=== PATIENT | female | born 1995 | race Caucasian/White ===

== ENCOUNTER 2018-01-23 11:00 | Emergency (ER) | payer BC ==
[~2018-01-23] VITALS: Ht 165.1 cm; Wt 63.5 kg
[~2018-01-23 11:00] MED LIST: HYDROXYZINE HCL25 M1 PO; PROZAC20 MG PO
[2018-01-23 11:43] LABS: URINE BILIRUBIN 1+ (Negative); URINE BLOOD NEGATIVE (Negative); URINE CLARITY CLEAR; URINE COLOR YELLOW; URINE GLUCOSE-RANDOM NEGATIVE (Negative); URINE KETONES 3+ (Negative); URINE LEUKOCYTES-REFLEX NEGATIVE (Negative); URINE NITRITE-REFLEX NEGATIVE (Negative); URINE PROTEIN 1+ (Negative); URINE SPECIFIC GRAVITY >= 1.030 (1.005-1.030); URINE UROBILINOGEN 0.2 E.U./dl (0.2-1.0)
[2018-01-23 11:45] LABS: ICTOTEST (BILI CONFIRMATORY) Negative (Negative)
[2018-01-23 11:47] LABS: INFLUENZA B ANTIGEN None Detected (None Detect)
[2018-01-23 12:10] LABS: HEMATOCRIT 42.5 % (37.0-47.0); MCH 29.2 pg (26.0-34.0); MCV 88.4 fL (80.0-100.0); MPV 9.3 fl. (7.2-11.1); NUCLEATED RBCS 0 /100WBC; PLATELET COUNT* 193 thou/uL (150-400); RBC 4.81 mil/uL (4.20-5.00); WBC 6.9 thou/uL (4.0-11.0)
[2018-01-23 12:18] LABS: CALCIUM 8.5 mg/dL (8.5-10.1); CREATININE 0.6 mg/dL (0.6-1.3); POTASSIUM 3.7 mmol/L (3.5-5.1)
[2018-01-23 12:23] LABS: TOTAL BILIRUBIN 0.4 mg/dL (<0.1-1.0); TOTAL PROTEIN 7.2 g/dL (6.4-8.2)
[2018-01-23 12:38] LABS: ABSOLUTE BASOPHILS 0.1 thou/uL (0.0-0.2); ABSOLUTE LYMPHOCYTES 0.1 thou/uL (0.8-5.3); ABSOLUTE MONOCYTES 0.5 thou/uL (0.0-1.2); ABSOLUTE NEUTROPHILS 6.2 thou/uL (1.6-8.1); PLATELET ESTIMATE ADEQUATE
[2018-01-23] MEDS ORDERED: ZOFRAN4 MG PO (13:22)
[2018-01-23 13:56] VITALS: BP 115/74
== END 2018-01-23 13:57 | disposition home or self-care (01) ==
LOC: M.ERS 11:00
PROVIDERS: Nurse Practitioner Family
DX: J09.X2 Influenza due to identified novel influenza A virus with other respiratory manifestations (principal); F32.9 Major depressive disorder, single episode, unspecified; F41.9 Anxiety disorder, unspecified; F43.10 Post-traumatic stress disorder, unspecified; Z90.89 Acquired absence of other organs; Z91.040 Latex allergy status

== ENCOUNTER 2019-01-08 20:14 | Emergency (ER) | payer BC ==
[~2019-01-08] VITALS: Ht 165.1 cm; Wt 56.7 kg
[~2019-01-08 20:14] MED LIST changes: +ZOFRAN4 MG PO
[2019-01-08] MEDS ORDERED: ACETAMINOPHEN-1 EAC1 PO (20:56)
[2019-01-08] MEDS ORDERED: NAPROSYN500 MG PO (20:56)
[2019-01-08 21:31] VITALS: BP 99/65
== END 2019-01-08 21:33 | disposition home or self-care (01) ==
LOC: M.ERS 20:14
DX: G89.29 Other chronic pain (principal); R68.84 Jaw pain; F32.9 Major depressive disorder, single episode, unspecified; F41.9 Anxiety disorder, unspecified; Z91.040 Latex allergy status

== ENCOUNTER 2019-04-12 23:40 | Emergency (ER) | payer BC ==
[~2019-04-12] VITALS: Ht 165.1 cm; Wt 54.4 kg
[~2019-04-12 23:40] MED LIST changes: +ACETAMINOPHEN-1 EAC1 PO; +NAPROSYN500 MG PO
[2019-04-12] MEDS ORDERED: ADDERALL 20 MG20 M1 PO (23:51)
[2019-04-12] MEDS ORDERED: ABILIFY 5 MG TAB5 M1 PO (23:51)
[2019-04-13] LABS: URINE BILIRUBIN NEGATIVE (Negative); URINE BLOOD NEGATIVE (Negative); URINE CLARITY CLEAR; URINE COLOR YELLOW; URINE GLUCOSE-RANDOM NEGATIVE (Negative); URINE KETONES NEGATIVE (Negative); URINE LEUKOCYTES-REFLEX NEGATIVE (Negative); URINE NITRITE-REFLEX NEGATIVE (Negative); URINE PROTEIN NEGATIVE (Negative); URINE SPECIFIC GRAVITY 1.015 (1.005-1.030); URINE UROBILINOGEN 0.2 E.U./dl (0.2-1.0)
[2019-04-13] MEDS ORDERED: ZOFRAN ODT4 MG DISSOLVE (00:11)
[2019-04-13 00:18] VITALS: BP 110/78
== END 2019-04-13 00:18 | disposition home or self-care (01) ==
LOC: M.ERS 23:40
PROVIDERS: Emergency Medicine
DX: R11.2 Nausea with vomiting, unspecified (principal); R10.32 Left lower quadrant pain; F17.200 Nicotine dependence, unspecified, uncomplicated; F32.9 Major depressive disorder, single episode, unspecified; F41.9 Anxiety disorder, unspecified; Z91.040 Latex allergy status

== ENCOUNTER 2019-04-15 13:58 | Emergency (ER) | payer BC ==
[~2019-04-15] VITALS: Ht 165.1 cm; Wt 54.4 kg
[~2019-04-15 13:58] MED LIST changes: +ABILIFY 5 MG TAB5 M1 PO; +ADDERALL 20 MG20 M1 PO; +ZOFRAN ODT4 MG DISSOLVE
[2019-04-15 14:33] LABS: ABSOLUTE BASOPHILS 0.1 thou/uL (0.0-0.2); ABSOLUTE EOSINOPHILS 0.1 thou/uL (0.0-0.7); ABSOLUTE LYMPHOCYTES 2.9 thou/uL (0.8-5.3); ABSOLUTE MONOCYTES 0.5 thou/uL (0.0-1.2); ABSOLUTE NEUTROPHILS 3.8 thou/uL (1.6-8.1); BASOPHILS 0.7 %; EOSINOPHILS 1.7 %; HEMATOCRIT 40.8 % (37.0-47.0); HEMOGLOBIN 13.9 gm/dL (12.0-15.0); LYMPHOCYTES 39.1 %; MCH 29.9 pg (26.0-34.0); MCV 88.1 fL (80.0-100.0); MONOCYTES 6.9 %; MPV 8.4 fl. (7.2-11.1); NUCLEATED RBCS 0 /100WBC; PLATELET COUNT* 231 thou/uL (150-400); POLYS 51.6 %; RBC 4.63 mil/uL (4.20-5.00); RDW-CV 13.2 % (10.5-14.5); WBC 7.4 thou/uL (4.0-11.0)
[2019-04-15 14:41] LABS: CALCIUM 8.7 mg/dL (8.5-10.1); CREATININE 0.7 mg/dL (0.6-1.3); POTASSIUM 3.6 mmol/L (3.5-5.1)
[2019-04-15 14:45] LABS: ALBUMIN 3.8 g/dL (3.4-5.0); TOTAL BILIRUBIN 0.6 mg/dL (<0.1-1.0); TOTAL PROTEIN 6.7 g/dL (6.4-8.2)
[2019-04-15] MEDS ORDERED: PHENERGAN 25 MG25 M1 PO (15:27)
[2019-04-15 15:51] LABS: URINE BILIRUBIN NEGATIVE (Negative); URINE BLOOD NEGATIVE (Negative); URINE CLARITY CLEAR; URINE COLOR STRAW; URINE GLUCOSE-RANDOM NEGATIVE (Negative); URINE KETONES NEGATIVE (Negative); URINE LEUKOCYTES-REFLEX NEGATIVE (Negative); URINE NITRITE-REFLEX NEGATIVE (Negative); URINE PROTEIN NEGATIVE (Negative); URINE UROBILINOGEN 0.2 E.U./dl (0.2-1.0)
[2019-04-15 16:01] VITALS: BP 105/62
== END 2019-04-15 16:03 | disposition home or self-care (01) ==
LOC: M.ERS 13:58
PROVIDERS: Physician Assistant
DX: R11.2 Nausea with vomiting, unspecified (principal); R10.32 Left lower quadrant pain; R19.7 Diarrhea, unspecified; F41.9 Anxiety disorder, unspecified; F32.9 Major depressive disorder, single episode, unspecified; Z91.040 Latex allergy status

== ENCOUNTER 2019-05-06 06:19 | Emergency (ER) | payer BC ==
[~2019-05-06] VITALS: Ht 165.1 cm; Wt 54.4 kg
[~2019-05-06 06:19] MED LIST changes: +PHENERGAN 25 MG25 M1 PO
[2019-05-06 06:45] LABS: ABSOLUTE LYMPHOCYTES 2.7 thou/uL (0.8-5.3); ABSOLUTE MONOCYTES 0.5 thou/uL (0.0-1.2); ABSOLUTE NEUTROPHILS 6.1 thou/uL (1.6-8.1); BASOPHILS 0.4 %; EOSINOPHILS 0.2 %; HEMATOCRIT 40.9 % (37.0-47.0); HEMOGLOBIN 13.6 gm/dL (12.0-15.0); LYMPHOCYTES 29.1 %; MCH 29.6 pg (26.0-34.0); MCHC 33.2 g/dL (28.0-37.0); MCV 89.2 fL (80.0-100.0); MONOCYTES 5.7 %; MPV 8.5 fl. (7.2-11.1); NUCLEATED RBCS 0 /100WBC; PLATELET COUNT* 230 thou/uL (150-400); POLYS 64.6 %; RBC 4.59 mil/uL (4.20-5.00); RDW-CV 13.3 % (10.5-14.5); WBC 9.4 thou/uL (4.0-11.0)
[2019-05-06 06:54] LABS: CALCIUM 8.1 mg/dL (8.5-10.1); CREATININE 0.5 mg/dL (0.6-1.3); POTASSIUM 4.3 mmol/L (3.5-5.1)
[2019-05-06 06:58] LABS: ALBUMIN 3.8 g/dL (3.4-5.0); TOTAL BILIRUBIN 0.2 mg/dL (<0.1-1.0); TOTAL PROTEIN 6.7 g/dL (6.4-8.2)
[2019-05-06 07:36] LABS: URINE BILIRUBIN NEGATIVE (Negative); URINE BLOOD NEGATIVE (Negative); URINE CLARITY CLEAR; URINE COLOR YELLOW; URINE GLUCOSE-RANDOM NEGATIVE (Negative); URINE KETONES TRACE (Negative); URINE LEUKOCYTES-REFLEX NEGATIVE (Negative); URINE NITRITE-REFLEX NEGATIVE (Negative); URINE PROTEIN NEGATIVE (Negative); URINE SPECIFIC GRAVITY >= 1.030 (1.005-1.030); URINE UROBILINOGEN 0.2 E.U./dl (0.2-1.0)
[2019-05-06] MEDS ORDERED: ZOFRAN ODT4 MG DISSOLVE (07:50)
[2019-05-06] MEDS ORDERED: CARAFATE1 GM PO (07:50)
[2019-05-06 08:01] VITALS: BP 101/62
== END 2019-05-06 08:02 | disposition home or self-care (01) ==
LOC: M.ERS 06:19
PROVIDERS: Emergency Medicine
DX: K29.20 Alcoholic gastritis without bleeding (principal); F10.129 Alcohol abuse with intoxication, unspecified; F32.9 Major depressive disorder, single episode, unspecified; F41.9 Anxiety disorder, unspecified; Z91.040 Latex allergy status; Y90.0 Blood alcohol level of less than 20 mg/100 ml

== ENCOUNTER 2020-05-04 13:23 | Emergency (ER) | payer BC ==
[~2020-05-04] VITALS: Ht 165.1 cm; Wt 68.0 kg
[~2020-05-04 13:23] MED LIST changes: +CARAFATE1 GM PO
[2020-05-04 14:29] LABS: URINE BILIRUBIN 1+ (Negative); URINE BLOOD NEGATIVE (Negative); URINE CLARITY CLEAR; URINE COLOR YELLOW; URINE GLUCOSE-RANDOM NEGATIVE (Negative); URINE KETONES 3+ (Negative); URINE LEUKOCYTES-REFLEX NEGATIVE (Negative); URINE NITRITE-REFLEX NEGATIVE (Negative); URINE PROTEIN NEGATIVE (Negative); URINE SPECIFIC GRAVITY >= 1.030 (1.005-1.030); URINE UROBILINOGEN 0.2 E.U./dl (0.2-1.0)
[2020-05-04 14:31] LABS: ICTOTEST (BILI CONFIRMATORY) Negative (Negative)
[2020-05-04 14:57] LABS: ABSOLUTE EOSINOPHILS 0.1 thou/uL (0.0-0.7); ABSOLUTE LYMPHOCYTES 2.5 thou/uL (0.8-5.3); ABSOLUTE MONOCYTES 0.5 thou/uL (0.0-1.2); ABSOLUTE NEUTROPHILS 5.4 thou/uL (1.6-8.1); BASOPHILS 0.4 %; EOSINOPHILS 1.2 %; HEMATOCRIT 45.5 % (37.0-47.0); HEMOGLOBIN 15.3 gm/dL (12.0-15.0); LYMPHOCYTES 29.3 %; MCH 29.9 pg (26.0-34.0); MCHC 33.6 g/dL (28.0-37.0); MONOCYTES 5.6 %; MPV 9.4 fl. (7.2-11.1); NUCLEATED RBCS 0 /100WBC; PLATELET COUNT* 269 thou/uL (150-400); POLYS 63.5 %; RBC 5.11 mil/uL (4.20-5.00); RDW-CV 13.9 % (10.5-14.5); WBC 8.5 thou/uL (4.0-11.0)
[2020-05-04 14:58] LABS: CALCIUM 9.1 mg/dL (8.5-10.1); CREATININE 0.7 mg/dL (0.6-1.3); POTASSIUM 4.5 mmol/L (3.5-5.1)
[2020-05-04 15:03] LABS: ALBUMIN 4.4 g/dL (3.4-5.0); TOTAL BILIRUBIN 0.6 mg/dL (<0.1-1.0); TOTAL PROTEIN 7.8 g/dL (6.4-8.2)
[2020-05-04 16:22] VITALS: BP 114/70
== END 2020-05-04 16:23 | disposition home or self-care (01) ==
LOC: M.ERS 13:23
PROVIDERS: Nurse Practitioner Family; Personal Emergency Response Attendant
DX: E86.0 Dehydration (principal); R11.2 Nausea with vomiting, unspecified; R21 Rash and other nonspecific skin eruption; F32.9 Major depressive disorder, single episode, unspecified; F41.9 Anxiety disorder, unspecified; F17.210 Nicotine dependence, cigarettes, uncomplicated; Z91.040 Latex allergy status

== ENCOUNTER 2020-07-20 13:41 | Emergency (ER) | payer OTHER, MEDICAID ==
[~2020-07-20] VITALS: Ht 165.1 cm; Wt 63.5 kg
[2020-07-20] MEDS ORDERED: ABILIFY 5 MG TAB5 M1 PO (13:52)
[2020-07-20] MEDS ORDERED: LEXAPRO5 MG PO (13:52)
[2020-07-20] MEDS ORDERED: ADDERALL 10 MG10 MG PO (13:52)
[2020-07-20 14:12] LABS: URINE BLOOD 2+ (Negative); URINE CLARITY CLEAR; URINE COLOR YELLOW; URINE GLUCOSE-RANDOM NEGATIVE (Negative); URINE KETONES 2+ (Negative); URINE LEUKOCYTES-REFLEX NEGATIVE (Negative); URINE NITRITE-REFLEX NEGATIVE (Negative); URINE PROTEIN TRACE (Negative); URINE SPECIFIC GRAVITY >= 1.030 (1.005-1.030); URINE UROBILINOGEN 0.2 E.U./dl (0.2-1.0)
[2020-07-20 14:12] LABS: ABSOLUTE EOSINOPHILS 0.1 thou/uL (0.0-0.7); ABSOLUTE LYMPHOCYTES 1.9 thou/uL (0.8-5.3); ABSOLUTE MONOCYTES 0.5 thou/uL (0.0-1.2); ABSOLUTE NEUTROPHILS 5.8 thou/uL (1.6-8.1); BASOPHILS 0.5 %; EOSINOPHILS 0.8 %; HEMATOCRIT 43.7 % (37.0-47.0); HEMOGLOBIN 14.8 gm/dL (12.0-15.0); LYMPHOCYTES 23.2 %; MCHC 33.8 g/dL (28.0-37.0); MCV 88.8 fL (80.0-100.0); MONOCYTES 5.8 %; MPV 8.8 fl. (7.2-11.1); NUCLEATED RBCS 0 /100WBC; PLATELET COUNT* 261 thou/uL (150-400); POLYS 69.7 %; RBC 4.92 mil/uL (4.20-5.00); RDW-CV 14.4 % (10.5-14.5); WBC 8.3 thou/uL (4.0-11.0)
[2020-07-20 14:13] LABS: URINE BILIRUBIN 2+ (Negative)
[2020-07-20 14:14] LABS: ICTOTEST (BILI CONFIRMATORY) Positive (Negative)
[2020-07-20 14:16] LABS: CALCIUM 8.9 mg/dL (8.5-10.1); CREATININE 0.7 mg/dL (0.6-1.3); POTASSIUM 3.6 mmol/L (3.5-5.1)
[2020-07-20 14:19] LABS: BACTERIA-REFLEX 1-9 Few /HPF (None Seen); CASTS ND /LPF (None Seen); CRYSTALS None Seen /LPF (None Seen); FINE GRANULAR CASTS 0-3 Few /LPF (None Seen); MUCUS 0-3 Light strn/LPF (None Seen); SQUAMOUS 0-3 Few /LPF (0-3); URINE RBC 3-10 Few /HPF (0-2); URINE WBC-REFLEX 0-5 Rare /HPF (0-5)
[2020-07-20 14:21] LABS: ALBUMIN 4.2 g/dL (3.4-5.0); APTT 25.2 Seconds (25.0-31.3); INR 1.1; TOTAL PROTEIN 7.3 g/dL (6.4-8.2)
[2020-07-20] MEDS ORDERED: PEPCID20 MG PO (14:40)
[2020-07-20 15:05] VITALS: BP 107/63
== END 2020-07-20 15:06 | disposition home or self-care (01) ==
LOC: M.ERS 13:41
PROVIDERS: Nurse Practitioner Psychiatric/Mental Health
DX: K29.70 Gastritis, unspecified, without bleeding (principal); N39.0 Urinary tract infection, site not specified; R11.2 Nausea with vomiting, unspecified; F32.9 Major depressive disorder, single episode, unspecified; F41.9 Anxiety disorder, unspecified; F17.210 Nicotine dependence, cigarettes, uncomplicated; Z91.040 Latex allergy status

== ENCOUNTER 2020-07-22 08:24 | Inpatient (IN) | payer BC, OTHER, MEDICAID ==
[~2020-07-22] VITALS: Ht 165.1 cm; Wt 65.5 kg
[~2020-07-22 08:24] MED LIST changes: +ADDERALL 10 MG10 MG PO; +LEXAPRO5 MG PO; +PEPCID20 MG PO
[2020-07-22 08:36] VITALS: BP 108/63
[2020-07-22 08:56] LABS: URINE BLOOD NEGATIVE (Negative); URINE CLARITY CLEAR; URINE COLOR YELLOW; URINE GLUCOSE-RANDOM NEGATIVE (Negative); URINE KETONES TRACE (Negative); URINE LEUKOCYTES-REFLEX NEGATIVE (Negative); URINE NITRITE-REFLEX NEGATIVE (Negative); URINE PROTEIN TRACE (Negative); URINE SPECIFIC GRAVITY >= 1.030 (1.005-1.030); URINE UROBILINOGEN 0.2 E.U./dl (0.2-1.0)
[2020-07-22 09:00] LABS: ABSOLUTE EOSINOPHILS 0.1 thou/uL (0.0-0.7); ABSOLUTE LYMPHOCYTES 1.9 thou/uL (0.8-5.3); ABSOLUTE MONOCYTES 0.5 thou/uL (0.0-1.2); ABSOLUTE NEUTROPHILS 4.7 thou/uL (1.6-8.1); BASOPHILS 0.4 %; HEMATOCRIT 37.2 % (37.0-47.0); HEMOGLOBIN 12.9 gm/dL (12.0-15.0); LYMPHOCYTES 25.9 %; MCH 30.1 pg (26.0-34.0); MCHC 34.6 g/dL (28.0-37.0); MCV 87.1 fL (80.0-100.0); MONOCYTES 7.2 %; MPV 8.2 fl. (7.2-11.1); NUCLEATED RBCS 0 /100WBC; PLATELET COUNT* 215 thou/uL (150-400); POLYS 65.5 %; RBC 4.27 mil/uL (4.20-5.00); RDW-CV 14.2 % (10.5-14.5); WBC 7.2 thou/uL (4.0-11.0)
[2020-07-22 09:02] LABS: ICTOTEST (BILI CONFIRMATORY) Positive (Negative); URINE BILIRUBIN 2+ (Negative)
[2020-07-22 09:11] LABS: CALCIUM 8.2 mg/dL (8.5-10.1); CREATININE 0.6 mg/dL (0.6-1.3); POTASSIUM 3.4 mmol/L (3.5-5.1)
[2020-07-22 09:15] LABS: ALBUMIN 3.5 g/dL (3.4-5.0); TOTAL BILIRUBIN 0.6 mg/dL (<0.1-1.0)
[2020-07-22 10:28] LABS: APTT 25.8 Seconds (25.0-31.3); INR 1.1; PROTIME 11.1 Seconds (9.20-11.50)
[2020-07-22 12:31] LABS: AMP/METHAMP Negative (Negative); BARBITURATES Negative (Negative); BENZODIAZEPINES Negative (Negative); COCAINE Negative (Negative); METHADONE Negative (Negative); OPIATES Negative (Negative); PCP Negative (Negative); THC POSITIVE (Negative)
[2020-07-22 16:40] VITALS: BP 120/81
[2020-07-22 17:18] VITALS: BP 105/67
[2020-07-22 20:00] VITALS: BP 118/77
[2020-07-23] VITALS: BP 116/72
[2020-07-23 04:00] VITALS: BP 116/76
[2020-07-23 05:36] LABS: ABSOLUTE EOSINOPHILS 0.1 thou/uL (0.0-0.7); ABSOLUTE LYMPHOCYTES 2.6 thou/uL (0.8-5.3); ABSOLUTE MONOCYTES 0.4 thou/uL (0.0-1.2); ABSOLUTE NEUTROPHILS 2.3 thou/uL (1.6-8.1); BASOPHILS 0.7 %; EOSINOPHILS 2.1 %; HEMATOCRIT 34.7 % (37.0-47.0); HEMOGLOBIN 11.8 gm/dL (12.0-15.0); LYMPHOCYTES 47.8 %; MCH 29.8 pg (26.0-34.0); MCV 87.7 fL (80.0-100.0); MONOCYTES 6.9 %; MPV 8.8 fl. (7.2-11.1); NUCLEATED RBCS 0 /100WBC; PLATELET COUNT* 200 thou/uL (150-400); POLYS 42.5 %; RBC 3.96 mil/uL (4.20-5.00); RDW-CV 14.1 % (10.5-14.5); WBC 5.5 thou/uL (4.0-11.0)
[2020-07-23 05:52] LABS: CALCIUM 7.9 mg/dL (8.5-10.1); CREATININE 0.6 mg/dL (0.6-1.3); POTASSIUM 3.2 mmol/L (3.5-5.1)
[2020-07-23 08:00] VITALS: BP 120/74
[2020-07-23 15:50] VITALS: BP 114/75
[2020-07-23 16:33] LABS: HEMATOCRIT 39.7 % (37.0-47.0); HEMOGLOBIN 13.3 gm/dL (12.0-15.0)
[2020-07-23 22:06] LABS: HEMATOCRIT 36.3 % (37.0-47.0); HEMOGLOBIN 12.5 gm/dL (12.0-15.0)
[2020-07-23 23:02] VITALS: BP 110/51
[2020-07-24 04:05] LABS: ABSOLUTE EOSINOPHILS 0.1 thou/uL (0.0-0.7); ABSOLUTE MONOCYTES 0.5 thou/uL (0.0-1.2); BASOPHILS 0.6 %; EOSINOPHILS 1.6 %; HEMATOCRIT 35.4 % (37.0-47.0); HEMOGLOBIN 12.7 gm/dL (12.0-15.0); LYMPHOCYTES 38.9 %; MCH 31.4 pg (26.0-34.0); MCHC 35.9 g/dL (28.0-37.0); MCV 87.6 fL (80.0-100.0); MPV 9.6 fl. (7.2-11.1); NUCLEATED RBCS 0 /100WBC; PLATELET COUNT* 212 thou/uL (150-400); POLYS 51.9 %; RBC 4.05 mil/uL (4.20-5.00); RDW-CV 13.8 % (10.5-14.5); WBC 7.7 thou/uL (4.0-11.0)
[2020-07-24 04:18] LABS: CALCIUM 7.5 mg/dL (8.5-10.1); CREATININE 0.6 mg/dL (0.6-1.3); POTASSIUM 3.1 mmol/L (3.5-5.1); TOTAL BILIRUBIN 0.5 mg/dL (<0.1-1.0); TOTAL PROTEIN 5.2 g/dL (6.4-8.2)
[2020-07-24 05:35] LABS: HEMATOCRIT 36.3 % (37.0-47.0); HEMOGLOBIN 12.5 gm/dL (12.0-15.0)
[2020-07-24 08:40] VITALS: BP 116/76
[2020-07-24 14:31] VITALS: BP 116/76
--- NOTE | 2020-07-25 15:07 | PATH ---
[address] [address] PATHOLOGY RPT PROCEDURE Name: DAWITWERNERBUCKDAVEEVELYNE ISBELL Room: [address] IN M.R.#: [id number] Admission: 07/22/20 Date of : [birth year] Discharge: 07/24/20 Report #: [id number] Path Case #: [id number] [facility] Accession Number: [id number] . 01 Material submitted: . small bowel - SMALL BOWEL BIOPSY . 01 Clinical history: . R/O CELIAC, GI BLEED, ANEMIA . 02 Diagnosis: Small bowel biopsies: - Normal small intestinal mucosa. (ANGELO:cara; 07/25/2020) MBR 07/25/2020 1042 Local . 02 Electronically signed: . Raul James MD, Pathologist NPI- [id number] . 01 Gross description: . The specimen is received in formalin, labeled "Dave Trempy, small bowel biopsies, R/O celiac". Received are three segments of pale tucker soft tissue ranging in size from 0.3 to 0.6 cm in maximum dimensions. The specimen is submitted entirely in cassette A1. (CAA; 07/24/2020) QAC/QA 07/24/2020 1721 Local . 02 Pathologist provided ICD-10: K92.2, D64.9 . 02 CPT . 494193 Specimen Comment: A courtesy copy of this report has been sent to [phone] Specimen Comment: [phone], Specimen Comment: Report sent to ,DR GARCIA / DR HILTON Specimen Comment: A duplicate report has been generated due to demographic updates. Performed at: 01 [facility] [address], [place] [id number] MD Jcarlos Guy MD Phone: [phone] Performed at: 02 [facility] [address], [place], [place] [id number] MD Raul James MD Phone: [phone]
--- NOTE | 2020-07-25 21:43 | CON ---
[address] [address] CONSULTATION Name: DAVE JAY Room: [address] IN M.R.#: [id number] Admission: 07/22/20 Attend Phys: Bello Hunt MD Discharge: 07/24/20 Date of : [birth year] Report #: [id number] THIS REPORT FOR: //name// cc: James Ferguson Ghaison F. DO ~ THIS REPORT FOR: //name// CC: Bello Ferguson DO DICTATED BY: Tanya Guajardo [facility] DATE OF SERVICE: 07/23/2020 PRIMARY CARE PHYSICIAN: James Ferguson DO Please note at the time of this dictation, the patient was seen and physically examined by myself. REASON FOR CONSULTATION: Hematemesis, nausea, vomiting, abdominal pain and diarrhea. HISTORY OF PRESENT ILLNESS: The patient states that approximately 5 days ago, she began having vomiting, she noted some bright red blood in color and some coffee-ground emesis. She denied any NSAID use. She also had noticed a little bit of blood with a bowel movement when she has been having diarrhea several times a day along with the abdominal pain that all has been going on with this as well. She states she has never had these symptoms before. 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 She has a history of acid reflux in the past, which she has used famotidine and that it was somewhat helpful and patient still has her gallbladder. Prior to the onset of all these symptoms, she has never had this before and her bowels were soft and formed and moved on a daily basis. ALLERGIES: LATEX. MEDICATIONS FROM HOME: Famotidine, Adderall, Abilify, Lexapro. PAST MEDICAL HISTORY: Anxiety and acid reflux. PAST SURGICAL HISTORY: Tonsillectomy. FAMILY HISTORY: Negative for any GI or female cancers. SOCIAL HISTORY: She smokes 1 joint per day. Denies [place] [address] CONSULTATION Name: DAVE JAYZABETH Room: [address]#: [id number] Admission: 07/22/20 Attend Phys: Bello Hunt MD Discharge: 07/24/20 Date of : [birth year] Report #: [id number] smoke tobacco about a half a pack per day and denies any other illegal drug use. REVIEW OF SYSTEMS: Twelve-point review of systems is essentially negative except what is mentioned in the HPI. PHYSICAL EXAMINATION: VITAL SIGNS: Temperature 36.6, pulse 70, respirations 18, blood pressure 120/74. HEART: Regular rate and rhythm. LUNGS: Clear. ABDOMEN: Soft, positive bowel sounds in all 4 quadrants with some tenderness noted throughout and she is rating it as a 6/10. LABORATORY DATA: Hemoglobin 11.8, white count 5.5, platelets 200. BUN is 4, creatinine 0.6, GFR is 124. CT was negative. Ultrasound showed contracted gallbladder. Tox screen showed positive for THC. IMPRESSION: 1. Hematemesis. 2. Nausea and vomiting. 3. Abdominal pain. 4. Diarrhea. 5. History of gastroesophageal reflux disease, takes famotidine. 6. THC regular use at bedtime to help with sleep. PLAN: 1. EGD today with Dr. Hardy. 2. If above negative, may consider hepatobiliary scan. 3. Further recommendations to be made after the procedure has been performed. Thank you for allowing us to participate in this patient's care. Please do not hesitate to call with any questions in regard to this consult. <ELECTRONICALLY SIGNED> By: Les Hardy DO 07/25/20 2143 1215 1236Les Hardy DO /nt
== END 2020-07-24 14:50 | disposition home or self-care (01) | DRG 379 ==
LOC: M.ERS 08:24 → M.TBA-ER 10:08 → M.3W 10:08 → M.2W 17:16 → M.3W 07-23 12:36
PROVIDERS: Family Medicine; Surgery; ADMIT Internal Medicine; ATTEND Internal Medicine
PROC: 0DB98ZX Excision of Duodenum, Via Natural or Artificial Opening Endoscopic, Diagnostic (ICD-10-PCS; principal; 2020-07-23)
DX: K92.2 Gastrointestinal hemorrhage, unspecified (principal); F32.9 Major depressive disorder, single episode, unspecified; K92.0 Hematemesis; F41.9 Anxiety disorder, unspecified; D64.9 Anemia, unspecified; K21.9 Gastro-esophageal reflux disease without esophagitis; F17.210 Nicotine dependence, cigarettes, uncomplicated; E86.0 Dehydration; F12.90 Cannabis use, unspecified, uncomplicated; F43.9 Reaction to severe stress, unspecified; K81.9 Cholecystitis, unspecified; E87.6 Hypokalemia; K31.9 Disease of stomach and duodenum, unspecified; Z20.828 Contact with and (suspected) exposure to other viral communicable diseases; Z91.040 Latex allergy status; Z79.899 Other long term (current) drug therapy

== ENCOUNTER 2021-01-13 12:18 | Emergency (ER) | payer BC, OTHER, MEDICAID ==
[~2021-01-13] VITALS: Ht 165.1 cm; Wt 60.8 kg
[2021-01-13] MEDS ORDERED: KEFLEX500 M1 PO (12:38)
[2021-01-13] MEDS ORDERED: BACTRIM DS TAB1 EACH PO (12:38)
[2021-01-13] MEDS ORDERED: NORCO5 PO (12:38)
[2021-01-13 12:43] VITALS: BP 115/74
== END 2021-01-13 12:44 | disposition home or self-care (01) ==
LOC: M.ERS 12:18
DX: H00.034 Abscess of left upper eyelid (principal); H00.024 Hordeolum internum left upper eyelid; Z91.040 Latex allergy status

== ENCOUNTER 2021-06-19 21:01 | Emergency (ER) | payer BC, OTHER, MEDICAID ==
[~2021-06-19] VITALS: Ht 165.1 cm; Wt 59.0 kg
[~2021-06-19 21:01] MED LIST changes: +BACTRIM DS TAB1 EACH PO; +KEFLEX500 M1 PO; +NORCO5 PO
[2021-06-19 21:16] LABS: URINE BILIRUBIN NEGATIVE (Negative); URINE BLOOD NEGATIVE (Negative); URINE CLARITY CLEAR; URINE COLOR YELLOW; URINE GLUCOSE-RANDOM NEGATIVE (Negative); URINE KETONES TRACE (Negative); URINE LEUKOCYTES TRACE (Negative); URINE NITRITE NEGATIVE (Negative); URINE PROTEIN NEGATIVE (Negative); URINE SPECIFIC GRAVITY 1.025 (1.005-1.030); URINE UROBILINOGEN 0.2 E.U./dl (0.2-1.0)
[2021-06-19 21:26] LABS: HEMATOCRIT 38.3 % (37.0-47.0); HEMOGLOBIN 13.1 gm/dL (12.0-15.0); MCH 30.6 pg (26.0-34.0); MCHC 34.1 g/dL (28.0-37.0); MCV 89.8 fL (80.0-100.0); MPV 8.6 fl. (7.2-11.1); RBC 4.27 mil/uL (4.20-5.00); RDW-CV 13.1 % (10.5-14.5); WBC 13.3 thou/uL (4.0-11.0)
[2021-06-19 21:31] LABS: AMP/METHAMP Negative (Negative); BARBITURATES Negative (Negative); BENZODIAZEPINES Negative (Negative); COCAINE Negative (Negative); METHADONE Negative (Negative); OPIATES Negative (Negative); PCP Negative (Negative); THC POSITIVE (Negative)
[2021-06-19 21:34] LABS: BACTERIA >30 Many /HPF (None Seen); CASTS None Seen /LPF (None Seen); CRYSTALS None Seen /LPF (None Seen); MUCUS 4-6 Moderate strn/LPF (None Seen); SQUAMOUS 4-10 Moderate /LPF (0-3); TRANSITIONAL EPITHEL CELL 0-3 Few /LPF (None Seen); URINE RBC 3-10 Few /HPF (0-2); WBC CLUMPS Few (None Seen)
[2021-06-19 21:35] LABS: CALCIUM 8.5 mg/dL (8.5-10.1); CREATININE 0.6 mg/dL (0.6-1.3); POTASSIUM 3.5 mmol/L (3.5-5.1)
[2021-06-19 21:39] LABS: ALBUMIN 4.1 g/dL (3.4-5.0); TOTAL BILIRUBIN 0.3 mg/dL (<0.1-1.0); TOTAL PROTEIN 6.9 g/dL (6.4-8.2)
[2021-06-19 21:46] LABS: ALCOHOL < 10 mg/dL (<10)
[2021-06-19 21:47] LABS: ACETAMINOPHEN < 2 ug/mL (10-30)
--- NOTE | 2021-06-20 09:16 | EKG ---
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 Service Supervisor: [place] : 1995 Requested By: Lidia Lai Order Number: [id number] MD: John Kurtz Measurements Intervals [place] Rate: 94 P: 69 LA: 119 QRS: 76 QRSD: 86 T: 2 QT: 355 QTc: 444 Interpretive Statements Sinus rhythm Borderline short LA interval Borderline T wave abnormalities No previous ECG available for comparison Electronically Signed On 06-20-2021 9:16:52 CDT by John Kurtz [email or web address] <ELECTRONICALLY SIGNED> By: Varinder Kurtz MD, [facility] 06/20/2116 36 36 Varinder Kurtz MD, [facility] /EPI
[2021-06-20 11:01] VITALS: BP 110/58
== END 2021-06-20 11:04 | disposition still patient (30) ==
LOC: M.ERS 21:01
PROVIDERS: Personal Emergency Response Attendant
DX: R45.851 Suicidal ideations (principal); Z20.822 Contact with and (suspected) exposure to COVID-19; N39.0 Urinary tract infection, site not specified; F60.89 Other specific personality disorders; Z91.040 Latex allergy status